=== PATIENT | female | born 1990 | race Caucasian/White ===

== ENCOUNTER 2016-04-05 10:34 | Emergency (ER) | payer OTHER ==
[~2016-04-05 10:34] MED LIST: ACET50TA PO; IBUP60TA PO
[2016-04-05 11:38] LABS: BASO % 0.5 % (0.0-1.0); EOS # 0.2 K/mm3 (0.0-0.50); EOS % 2.1 % (0.0-3.0); LARGE UNSTAINED CELL # 0.1 K/mm3 (0.0-0.4); LARGE UNSTAINED CELL % 2.1 % (0.0-4.0); LYMPH # 2.9 K/mm3 (1.5-6.5); LYMPH % 39.9 % (24.0-44.0); MEAN CORPUSCULAR HEMOGLOBIN 28.1 pg (27.0-33.0); MEAN CORPUSCULAR HGB CONC 31.9 g/dl (32.0-36.5); MONO # 0.4 K/mm3 (0.0-0.8); MONO % 5.7 % (0.0-5.0); NEUTROPHILS # 3.4 K/mm3 (1.8-7.7); NEUTROPHILS % 49.8 % (36.0-66.0); PLATELET COUNT, AUTOMATED 230 k/mm3 (150-450); RED CELL DISTRIBUTION WIDTH 12.1 % (11.5-14.5); WHITE BLOOD COUNT 6.9 K/mm3 (4.0-10.0)
--- NOTE | 2016-04-05 11:56 | REP ---
Chest x-ray: Two views. History: Chest pain . Comparison study: November 07, 2015 . Findings: The lungs are well inflated and free of infiltrate. The pleural angles are sharp. The heart size is normal. Pulmonary vasculature is not increased. No significant bony abnormality is seen. Impression: Negative chest x-ray. Signed by Hilario Hanna MD 04/05/2016 11:48 A
[2016-04-05 12:04] LABS: ALBUMIN 3.7 GM/DL (3.2-5.2); ALBUMIN/GLOBULIN RATIO 1.06 (1.00-1.93); ALKALINE PHOSPHATASE 65 U/L (45-117); ALT/SGPT 71 U/L (12-78); ANION GAP 8 MEQ/L (8-16); AST/SGOT 27 U/L (15-37); BILIRUBIN,DIRECT 0.1 MG/DL (0.0-0.2); BILIRUBIN,TOTAL 0.4 MG/DL (0.2-1.0); BLOOD UREA NITROGEN 8 MG/DL (7-18); CALCIUM LEVEL 8.3 MG/DL (8.5-10.1); CARBON DIOXIDE LEVEL 26 MEQ/L (21-32); CHLORIDE LEVEL 106 MEQ/L (98-107); CREATININE FOR GFR 0.77 MG/DL (0.55-1.02); GLOMERULAR FILTRATION RATE > 60.0 (>60); GLUCOSE, FASTING 80 MG/DL (70-105); POTASSIUM SERUM 3.7 MEQ/L (3.5-5.1); SODIUM LEVEL 140 MEQ/L (136-145); TOTAL PROTEIN 7.2 GM/DL (6.4-8.2)
--- NOTE | 2016-04-05 13:53 | EDDOCDS ---
Physician Documentation [facility] Name: Mariangel Mercado Age: 25 yrs Sex: Female : 1990 Arrival Date: 04/05/2016 Time: 10:34 Bed I3 / M3 Private MD: [place] [facility] [place]position: 04/05/16 13:12 Discharged to Home/Self Care. Impression: Anxiety disorder, unspecified, Chest pain, unspecified, Adverse effect of vitamins - WORKOUT/WEIGHT LOSS MEDICATIONS. - Condition is Stable. - Discharge Instructions: Nonspecific Chest Pain, Generalized Anxiety Disorder. - Medication Reconciliation, Local Pharmacy Hours form. - Follow up: Emergency Department; When: As needed; Reason: Worsening of conditions. Follow up: Private Physician; When: 2 - 3 days; Reason: Wound/Symptom Recheck, Recheck today's complaints, Continuance of care. - Problem is new. - Symptoms have improved. Historical: - Allergies: no known allergies; - Home Meds: 1. 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 No barriers to communication noted, The patient speaks fluent Egyptian, Speaks appropriately for age. - Family history: Not pertinent. - : The pt / caregiver states he / she is not on anticoagulants. Home medication list is obtained from the patient. - Exposure Risk Screening:: None identified. 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 6 in. (167.64 cm) (R); Pain 6/10; 13:36 BP 126 / 66 LA Sitting (auto/reg); Pulse 74; Resp 16; Temp 97.2(O); Pulse Ox 98% on jrd R/A; Pain 4/10; 10:36 Body Mass Index 34.70 (97.52 kg, 167.64 cm) lr2 MDM: 10:42 ECG WITH READING ER PHYS+CARDIAG ordered. EDMS 11:00 Financial registration complete. lg 11:09 IV Saline Lock ordered. dt4 11:09 Cardiac Injury Profile Ordered. EDMS 11:09 Troponin Ordered. EDMS 11:09 CBC with Diff Ordered. EDMS 11:09 Basic Metabolic Profile Ordered. EDMS 11:09 Liver Profile Ordered. EDMS 11:09 TSH w/o Free T4 Ordered. EDMS 11:11 Chest, 2 View (pa\\E\\lat) Ordered. EDMS 11:33 [facility] Payment Agreement was scanned into [employer] and attached to record. lg 12:08 NS 0.9% 1000 ml IV at bolus once ordered. dt4 13:07 Cardiac Injury Profile Reviewed. dt4 13:07 CBC with Diff Reviewed. dt4 13:07 Basic Metabolic Profile Reviewed. dt4 13:07 Troponin Reviewed. dt4 13:07 Liver Profile Reviewed. dt4 13:07 TSH w/o Free T4 Reviewed. dt4 13:07 Chest, 2 View (pa\\E\\lat) Reviewed. dt4 Administered Medications: 12:43 Drug: NS 0.9% 1000 ml [sodium chloride 0.9 % intravenous solution] Route: IV; Rate: jo3 bolus; Site: left antecubital; Signatures: Dispatcher [employer] EDBishop Smyth RN RN jmk Michelson, Staci, RN RN srm Ganter, LoriLee, Jame Reg Codi Garcia RN RN jo3 Tschudi, Diane, PA-C PA-C dt4 The chart was reviewed and I authenticate all verbal orders and agree with the evaluation and treatment provided.Attachments: 11:33 [facility] Payment Agreement lg MTDD
--- NOTE | 2016-04-05 13:53 | EDDOCDS ---
Nurse's Notes [facility] Name: Mariangel Mercado Age: 25 yrs Sex: Female : 1990 Arrival Date: 04/05/2016 Time: 10:34 Bed I3 / M3 Private MD: JOSE ELIAS Sanders Diagnosis: Anxiety disorder, unspecified;Chest pain, unspecified;Adverse effect of vitamins-WORKOUT/WEIGHT LOSS MEDICATIONS Presentation: 04/05 10:38 Presenting complaint: Patient states: wed started anew group of supplements and not srm reacting well with old supplements. had palpations and now having chest pain on left side, hands and arms are numb. dizziness. took supplements one day then stop them. Adult Sepsis Screening: The patient does not have new or worsening altered mentation. Patient's respiratory rate is less than 22. Systolic blood pressure is greater than 100. Patient has a qSOFA score of 0- Negative Sepsis Screen. Suicide/Homicide risk assessment- the patient denies having any suicidal and/or homicidal ideations and does not present with any other emotional, behavioral or mental health complaints. Status: The patient is a dependent. Transition of care: patient was not received from another setting of care. 10:38 Acuity: JUSTINO Level 3 srm 10:38 Method Of Arrival: Walkin/Carried/Asstd srm Triage Assessment: 10:40 General: Appears in no apparent distress, Behavior is appropriate for age, cooperative. srm Pain: Pain currently is 6 out of 10 on a pain scale. 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 No barriers to communication noted, The patient speaks fluent Puerto Rican, Speaks appropriately for age. - Family history: Not pertinent. - : The pt / caregiver states he / she is not on anticoagulants. Home medication list is obtained from the patient. - Exposure Risk Screening:: None identified. Screenin:30 Screening information is obtained from the patient. Fall risk: No risks identified. jo3 Assistance ADL's: requires no assistance with activities of daily living. Abuse/DV Screen: The patient / caregiver reports he/she is: not in a situation that causes fear, pain or injury. Nutritional screening: No deficits noted. Advance Directives: There is no active DNR order. home support is adequate. Assessment: 10:50 General: ekg shown to dr rosas and discussed pt's c/o. proceed through RCE process. srm 11:30 General: Appears in no apparent distress, comfortable, Behavior is appropriate for age, jo3 cooperative, pleasant. Neurological: Level of Consciousness is awake, alert, Oriented to person, place, time. Cardiovascular: Capillary refill is brisk Heart tones S1 S2 present Rhythm is regular Chest pain is located in left anterior. Respiratory: Airway is patent Respiratory effort is even, unlabored. Derm: Skin is pink, warm & dry. 12:30 Reassessment: Patient appears in no apparent distress at this time. No significant jo3 changes noted at this time. Awaiting disposition at this time. Aware of plan of care . 13:51 General: Appears without resp distress and is very tolerant of activity. Encouraged no jmk OTC preps for weight reduction, receptive.. Vital Signs: 10:36 BP 121 / 75; Pulse 72; Resp 17; Temp 97.4(T); Pulse Ox 99% on R/A; Weight 97.52 kg (R); lr2 Height 5 ft. 6 in. (167.64 cm) (R); Pain 6/10; 13:36 BP 126 / 66 LA Sitting (auto/reg); Pulse 74; Resp 16; Temp 97.2(O); Pulse Ox 98% on jrd R/A; Pain 4/10; 10:36 Body Mass Index 34.70 (97.52 kg, 167.64 cm) lr2 Vitals: 10:36 Log In Time: April 05, 2016 at 10:34. lr2 ED Course: 10:35 Patient visited by Mony Will. lr2 10:35 Patient moved to Waiting lr2 10:36 Tommy [facility] [place] is Private Physician. lr2 10:36 Patient moved to Pre RCE lr2 10:40 Triage Initiated srm 10:41 Patient moved to PR1 / 25 srm 10:48 Patient visited by Marleny Rodriguez, OLIVER. rs6 10:48 EKG done. (by ED staff). Reviewed by Carissa Rosas MD. rs6 10:50 Patient moved to Triage 2 srm 10:51 Patient visited by Zena Hanna RN. srm 10:54 [facility]. dt4 10:54 Carissa Rosas MD is Attending Physician. dt4 10:54 Patient visited by Shayy Mckeon PA-C. dt4 11:09 Patient moved to I3 / M3 rs6 11:30 The patient / caregiver is instructed regarding the plan of care and ED course. jo3 11:30 Inserted saline lock: 18 gauge in left antecubital area. Labs drawn. (by ED staff). jo3 Sent per order to lab. 11:33 [facility] [place] was scanned into [employer] and attached to record. lg 11:36 Patient visited by Codi Collins RN. jo3 12:34 Chest, 2 View (pa\\E\\lat) Returned. EDMS 12:48 Patient visited by Shayy Mckeon PA-C. dt4 13:07 Patient visited by Codi Collins RN. jo3 13:37 Patient visited by Ilia Mccurdy PCA. jrd 13:51 Discontinued lock intact, bleeding controlled, pressure dressing applied, No jmk redness/swelling at site. No procedures done that require assistance. Administered Medications: 12:43 Drug: NS 0.9% 1000 ml [sodium chloride 0.9 % intravenous solution] Route: IV; Rate: jo3 bolus; Site: left antecubital; Order Results: Lab Order: Cardiac Injury Profile; SPEC'M 04/05/16 11:27 Test: CPK CREATINE PHOSPHOKINASE; Value: 266; Range: 26-192; Abnormal: Above high normal; Units: U/L; Status: F Test: CK-MB VALUE MASS; Value: 1.6; Range: 0.0-3.6; Units: NG/ML; Status: F Test: MB/CK RELATIVE INDEX; Value: 0.60; Range: < OR =4; Status: F Test Note: ; DIAGNOSIS CRITERIA MMB ng/ml Relative Index (RI) NON-AMI < or = 5 N/A HO ZONE > 5 < or = 4 AMI > 5 > 4 Lab Order: Troponin; SPEC'M 04/05/16 11:27 Test: TROPONIN I; Value: < 0.02; Range: < 0.10; Units: NG/ML; Status: F Test Note: ; Troponin I Reference Interval for Siemens [place] LOCI: 99th Percentile= 0.00-0.045 ng/ml Risk Stratification: <= 0.10 ng/ml Decreased Risk for Adverse Clinical Events. 0.10-1.50 ng/ml Increased Risk for Adverse Clinical Events. Evaluation of additional criterion and/or repeat testing in 2-6 hours is suggested to rule out myocardial damage. >= 1.50 ng/ml Indicative of Myocardial Injury. Lab Order: CBC with Diff; [facility]04/05/16 11:27 Test: WHITE BLOOD COUNT; Value: 6.9; Range: 4.0-10.0; Units: K/mm3; Status: F Test: RED BLOOD COUNT; Value: 4.78; Range: 4.00-5.40; Units: M/mm3; Status: F Test: HEMOGLOBIN; Value: 13.4; Range: 12.0-16.0; Units: g/dl; Status: F Test: HEMATOCRIT; Value: 42.1; Range: 36.0-47.0; Units: %; Status: F Test: MEAN CORPUSCULAR VOLUME; Value: 88.0; Range: 80.0-96.0; Units: fl; Status: F Test: MEAN CORPUSCULAR HEMOGLOBIN; Value: 28.1; Range: 27.0-33.0; Units: pg; Status: F Test: MEAN CORPUSCULAR HGB CONC; Value: 31.9; Range: 32.0-36.5; Abnormal: Below low normal; Units: g/dl; Status: F Test: RED CELL DISTRIBUTION WIDTH; Value: 12.1; Range: 11.5-14.5; Units: %; Status: F Test: PLATELET COUNT, AUTOMATED; Value: 230; Range: 150-450; Units: k/mm3; Status: F Test: NEUTROPHILS %; Value: 49.8; Range: 36.0-66.0; Units: %; Status: F Test: LYMPH %; Value: 39.9; Range: 24.0-44.0; Units: %; Status: F Test: MONO %; Value: 5.7; Range: 0.0-5.0; Abnormal: Above high normal; Units: %; Status: F Test: EOS %; Value: 2.1; Range: 0.0-3.0; Units: %; Status: F Test: BASO %; Value: 0.5; Range: 0.0-1.0; Units: %; Status: F Test: LARGE UNSTAINED CELL %; Value: 2.1; Range: 0.0-4.0; Units: %; Status: F Test: NEUTROPHILS #; Value: 3.4; Range: 1.8-7.7; Units: K/mm3; Status: F Test: LYMPH #; Value: 2.9; Range: 1.5-6.5; Units: K/mm3; Status: F Test: MONO #; Value: 0.4; Range: 0.0-0.8; Units: K/mm3; Status: F Test: EOS #; Value: 0.2; Range: 0.0-0.50; Units: K/mm3; Status: F Test: BASO #; Value: 0.0; Range: 0.0-0.2; Units: K/mm3; Status: F Test: LARGE UNSTAINED CELL #; Value: 0.1; Range: 0.0-0.4; Units: K/mm3; Status: F Lab Order: Basic Metabolic Profile; [facility] 04/05/16 11:27 Test: GLUCOSE, FASTING; Value: 80; Range: 70-105; Units: MG/DL; Status: F Test: BLOOD UREA NITROGEN; Value: 8; Range: 7-18; Units: MG/DL; Status: F Test: CREATININE FOR GFR; Value: 0.77; Range: 0.55-1.02; Units: MG/DL; Status: F Test: GLOMERULAR FILTRATION RATE; Value: > 60.0; Range: >60; Status: F Test: SODIUM LEVEL; Value: 140; Range: 136-145; Units: MEQ/L; Status: F Test: POTASSIUM SERUM; Value: 3.7; Range: 3.5-5.1; Units: MEQ/L; Status: F Test: CHLORIDE LEVEL; Value: 106; Range: 98-107; Units: MEQ/L; Status: F Test: CARBON DIOXIDE LEVEL; Value: 26; Range: 21-32; Units: MEQ/L; Status: F Test: ANION GAP; Value: 8; Range: 8-16; Units: MEQ/L; Status: F Test: CALCIUM LEVEL; Value: 8.3; Range: 8.5-10.1; Abnormal: Below low normal; Units: MG/DL; Status: F Test Note: ; Units are mL/min/1.73 m2 Chronic Kidney Disease Staging per NKF: Stage I & II GFR >=60 Normal to Mildly Decreased Stage III GFR 30-59 Moderately Decreased Stage IV GFR 15-29 Severely Decreased Stage V GFR <15 Very Little GFR Left ESRD GFR <15 on DIRECTOR DATA MANAGEMENT Lab Order: Liver Profile; SPEC'M 04/05/16 11:27 Test: AST/SGOT; Value: 27; Range: 15-37; Units: U/L; Status: F Test: ALT/SGPT; Value: 71; Range: 12-78; Units: U/L; Status: F Test: ALKALINE PHOSPHATASE; Value: 65; Range: 45-117; Units: U/L; Status: F Test: BILIRUBIN,TOTAL; Value: 0.4; Range: 0.2-1.0; Units: MG/DL; Status: F Test: BILIRUBIN,DIRECT; Value: 0.1; Range: 0.0-0.2; Units: MG/DL; Status: F Test: TOTAL PROTEIN; Value: 7.2; Range: 6.4-8.2; Units: GM/DL; Status: F Test: ALBUMIN; Value: 3.7; Range: 3.2-5.2; Units: GM/DL; Status: F Test: ALBUMIN/GLOBULIN RATIO; Value: 1.06; Range: 1.00-1.93; Status: F Lab Order: TSH w/o Free T4; SPEC'M 04/05/16 11:27 Test: THYROID STIMULATING HORMONE; Value: 2.050; Range: 0.358-3.740; Units: uIU/ML; Status: F Radiology Order: Chest, 2 View (pa\\E\\lat) Test: Chest, 2 View (pa\\E\\lat) REASON FOR EXAMINATION: Chest Pain; Chest x-ray: Two views.; ; History: Chest pain .; ; Comparison study: November 07, 2015 .; ; Findings: The lungs are well inflated and free of infiltrate. The pleural; angles are sharp. The heart size is normal. Pulmonary vasculature is not; increased. No significant bony abnormality is seen.; ; Impression:; ; Negative chest x-ray.; ; ; Signed by; Hilario Hanna MD 04/05/2016 11:48 A; Outcome: 13:12 Discharge ordered by Provider. dt4 13:51 Discharge Assessment: Patient awake, alert and oriented x 3. No cognitive and/or jmk functional deficits noted. Patient verbalized understanding of disposition instructions. patient administered narcotics - no. The following High Risk Discharge criteria are identified: None. Discharged to home ambulatory. Condition: good. Discharge instructions given to patient, Instructed on discharge instructions, follow up and referral plans. medication usage, Demonstrated understanding of instructions, medications, Pt was receptive of discharge instructions/ teaching. No special radiology studies were completed. Property :Personal belongings accompany Pt. 13:53 Patient left the ED. evan Signatures: Dispatcher [employer] EDMS Bishop Rodriguez,RN RN Zena Ahn, RN RN Niels Denton, Jame Reg Codi Collins RN RN joShayy Boss, PA-C PA-C dt4 Ilia Mccurdy, WARDROBE ASSISTANT WARDROBE ASSISTANT Marleny Guerra, WARDROBE ASSISTANT WARDROBE ASSISTANT rs6 Mony Will lr2 LINDSAYD
--- NOTE | 2016-04-05 21:29 | ECGEPIP ---
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
--- NOTE | 2016-04-07 14:53 | EDDOCDS ---
Physician Documentation [facility] Name: Mariangel Mercado Age: 25 yrs Sex: Female : 1990 Arrival Date: 04/05/2016 Time: 10:34 Bed I3 / M3 Private MD: Tommy [facility] [place] Disposition: 04/05/16 13:12 Discharged to Home/Self Care. Impression: Anxiety disorder, unspecified, Chest pain, unspecified, Adverse effect of vitamins - WORKOUT/WEIGHT LOSS MEDICATIONS. - Condition is Stable. - Discharge Instructions: Nonspecific Chest Pain, Generalized Anxiety Disorder. - Medication Reconciliation, Local Pharmacy Hours form. - Follow up: Emergency Department; When: As needed; Reason: Worsening of conditions. Follow up: Private Physician; When: 2 - 3 days; Reason: Wound/Symptom Recheck, Recheck today's complaints, Continuance of care. - Problem is new. - Symptoms have improved. Historical: - Allergies: no known allergies; - Home Meds: 1. 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 No barriers to communication noted, The patient speaks fluent Namibian, Speaks appropriately for age. - Family history: Not pertinent. - : The pt / caregiver states he / she is not on anticoagulants. Home medication list is obtained from the patient. - Exposure Risk Screening:: None identified. 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 6 in. (167.64 cm) (R); Pain 6/10; 13:36 BP 126 / 66 LA Sitting (auto/reg); Pulse 74; Resp 16; Temp 97.2(O); Pulse Ox 98% on jrd R/A; Pain 4/10; 10:36 Body Mass Index 34.70 (97.52 kg, 167.64 cm) lr2 MDM: 10:42 ECG WITH READING ER PHYS+CARDIAG ordered. EDMS 11:00 Financial registration complete. lg 11:09 IV Saline Lock ordered. dt4 11:09 Cardiac Injury Profile Ordered. EDMS 11:09 Troponin Ordered. EDMS 11:09 CBC with Diff Ordered. EDMS 11:09 Basic Metabolic Profile Ordered. EDMS 11:09 Liver Profile Ordered. EDMS 11:09 TSH w/o Free T4 Ordered. EDMS 11:11 Chest, 2 View (pa\\E\\lat) Ordered. EDMS 11:33 [facility] [place] Agreement was scanned into [employer] and attached to record. lg 12:08 NS 0.9% 1000 ml IV at bolus once ordered. dt4 13:07 Cardiac Injury Profile Reviewed. dt4 13:07 CBC with Diff Reviewed. dt4 13:07 Basic Metabolic Profile Reviewed. dt4 13:07 Troponin Reviewed. dt4 13:07 Liver Profile Reviewed. dt4 13:07 TSH w/o Free T4 Reviewed. dt4 13:07 Chest, 2 View (pa\\E\\lat) Reviewed. dt4 14:58 T-Sheet-- Draft Copy was scanned into [employer] and attached to record. gb 04/06 17:02 ECG/EKG was scanned into [employer] and attached to record. gb Administered Medications: 02 12:43 Drug: NS 0.9% 1000 ml [sodium chloride 0.9 % intravenous solution] Route: IV; Rate: jo3 bolus; Site: left antecubital; Signatures: Dispatcher [employer] Bishop Mary RN RN jmk Michelson, Staci, RN RN [facility] Marilynn Hylton, Reg Reg Niels Briceno, Reg Reg Codi Collins RN RN jo3 Tschudi, Diane, PA-C PA-C dt4 The chart was reviewed and I authenticate all verbal orders and agree with the evaluation and treatment provided.Attachments: 11:33 [facility] Payment Agreement lg 14:58 T-Sheet-- Draft Copy gb 04/06 17:02 ECG/EKG gb Chart Complete MTDD
--- NOTE | 2016-04-07 14:53 | EDDOCDS ---
Physician Documentation [facility] Name: Mariangel Mercado Age: 25 yrs Sex: Female : 1990 Arrival Date: 04/05/2016 Time: 10:34 Bed I3 / M3 Private MD: Tommy [facility] [place] Disposition: 04/05/16 13:12 Discharged to Home/Self Care. Impression: Anxiety disorder, unspecified, Chest pain, unspecified, Adverse effect of vitamins - WORKOUT/WEIGHT LOSS MEDICATIONS. - Condition is Stable. - Discharge Instructions: Nonspecific Chest Pain, Generalized Anxiety Disorder. - Medication Reconciliation, Local Pharmacy Hours form. - Follow up: Emergency Department; When: As needed; Reason: Worsening of conditions. Follow up: Private Physician; When: 2 - 3 days; Reason: Wound/Symptom Recheck, Recheck today's complaints, Continuance of care. - Problem is new. - Symptoms have improved. Historical: - Allergies: no known allergies; - Home Meds: 1. 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 No barriers to communication noted, The patient speaks fluent Hungarian, Speaks appropriately for age. - Family history: Not pertinent. - : The pt / caregiver states he / she is not on anticoagulants. Home medication list is obtained from the patient. - Exposure Risk Screening:: None identified. 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 6 in. (167.64 cm) (R); Pain 6/10; 13:36 BP 126 / 66 LA Sitting (auto/reg); Pulse 74; Resp 16; Temp 97.2(O); Pulse Ox 98% on jrd R/A; Pain 4/10; 10:36 Body Mass Index 34.70 (97.52 kg, 167.64 cm) lr2 MDM: 10:42 ECG WITH READING ER PHYS+CARDIAG ordered. EDMS 11:00 Financial registration complete. lg 11:09 IV Saline Lock ordered. dt4 11:09 Cardiac Injury Profile Ordered. EDMS 11:09 Troponin Ordered. EDMS 11:09 CBC with Diff Ordered. EDMS 11:09 Basic Metabolic Profile Ordered. EDMS 11:09 Liver Profile Ordered. EDMS 11:09 TSH w/o Free T4 Ordered. EDMS 11:11 Chest, 2 View (pa\\E\\lat) Ordered. EDMS 11:33 [facility] [place] Payment Agreement was scanned into [employer] and attached to record. lg 12:08 NS 0.9% 1000 ml IV at bolus once ordered. dt4 13:07 Cardiac Injury Profile Reviewed. dt4 13:07 CBC with Diff Reviewed. dt4 13:07 Basic Metabolic Profile Reviewed. dt4 13:07 Troponin Reviewed. dt4 13:07 Liver Profile Reviewed. dt4 13:07 TSH w/o Free T4 Reviewed. dt4 13:07 Chest, 2 View (pa\\E\\lat) Reviewed. dt4 14:58 T-Sheet-- Draft Copy was scanned into [employer] and attached to record. gb 04/06 17:02 ECG/EKG was scanned into [employer] and attached to record. gb Administered Medications: 02 12:43 Drug: NS 0.9% 1000 ml [sodium chloride 0.9 % intravenous solution] Route: IV; Rate: jo3 bolus; Site: left antecubital; Signatures: Dispatcher [employer] Bishop Mary RN RN jmk Michelson, Staci, RN RN [place] [facility] Marilynn Hylton, Reg Reg Niels Briceno, Reg Reg Codi Collins RN RN jo3 Tschudi, Diane, PA-C PA-C dt4 The chart was reviewed and I authenticate all verbal orders and agree with the evaluation and treatment provided.Attachments: 11:33 [facility] Payment Agreement lg 14:58 T-Sheet-- Draft Copy gb 04/06 17:02 ECG/EKG gb Chart Complete MTDD
--- NOTE | 2016-04-07 14:54 | EDDOCDS ---
Nurse's Notes [facility] Name: Shubham Serna Age: 25 yrs Sex: Female : 1990 Arrival Date: 04/05/2016 Time: 10:34 Bed I3 / M3 Private MD: JOSE ELIAS Sanders Diagnosis: Anxiety disorder, unspecified;Chest pain, unspecified;Adverse effect of vitamins-WORKOUT/WEIGHT LOSS MEDICATIONS Presentation: 04/05 10:38 Presenting complaint: Patient states: wed started anew group of supplements and not srm reacting well with old supplements. had palpations and now having chest pain on left side, hands and arms are numb. dizziness. took supplements one day then stop them. Adult Sepsis Screening: The patient does not have new or worsening altered mentation. Patient's respiratory rate is less than 22. Systolic blood pressure is greater than 100. Patient has a qSOFA score of 0- Negative Sepsis Screen. Suicide/Homicide risk assessment- the patient denies having any suicidal and/or homicidal ideations and does not present with any other emotional, behavioral or mental health complaints. Status: The patient is a dependent. Transition of care: patient was not received from another setting of care. 10:38 Acuity: JUSTINO Level 3 srm 10:38 Method Of Arrival: Walkin/Carried/Asstd srm Triage Assessment: 10:40 General: Appears in no apparent distress, Behavior is appropriate for age, cooperative. srm Pain: Pain currently is 6 out of 10 on a pain scale. 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 No barriers to communication noted, The patient speaks fluent [place], Speaks appropriately for age. - Family history: Not pertinent. - : The pt / caregiver states he / she is not on anticoagulants. Home medication list is obtained from the patient. - Exposure Risk Screening:: None identified. Screenin:30 Screening information is obtained from the patient. Fall risk: No risks identified. jo3 Assistance ADL's: requires no assistance with activities of daily living. Abuse/DV Screen: The patient / caregiver reports he/she is: not in a situation that causes fear, pain or injury. Nutritional screening: No deficits noted. Advance Directives: There is no active DNR order. home support is adequate. Assessment: 10:50 General: ekg shown to dr rosas and discussed pt's c/o. proceed through RCE process. srm 11:30 General: Appears in no apparent distress, comfortable, Behavior is appropriate for age, jo3 cooperative, pleasant. Neurological: Level of Consciousness is awake, alert, Oriented to person, place, time. Cardiovascular: Capillary refill is brisk Heart tones S1 S2 present Rhythm is regular Chest pain is located in left anterior. Respiratory: Airway is patent Respiratory effort is even, unlabored. Derm: Skin is pink, warm & dry. 12:30 Reassessment: Patient appears in no apparent distress at this time. No significant jo3 changes noted at this time. Awaiting disposition at this time. Aware of plan of care . 13:51 General: Appears without resp distress and is very tolerant of activity. Encouraged no jmk OTC preps for weight reduction, receptive.. Vital Signs: 10:36 BP 121 / 75; Pulse 72; Resp 17; Temp 97.4(T); Pulse Ox 99% on R/A; Weight 97.52 kg (R); lr2 Height 5 ft. 6 in. (167.64 cm) (R); Pain 6/10; 13:36 BP 126 / 66 LA Sitting (auto/reg); Pulse 74; Resp 16; Temp 97.2(O); Pulse Ox 98% on jrd R/A; Pain 4/10; 10:36 Body Mass Index 34.70 (97.52 kg, 167.64 cm) lr2 Vitals: 10:36 Log In Time: April 05, 2016 at 10:34. lr2 ED Course: 10:35 Patient visited by Mony Will. lr2 10:35 Patient moved to Waiting lr2 10:36 Tommy [facility] is Private Physician. lr2 10:36 Patient moved to Pre RCE lr2 10:40 Triage Initiated srm 10:41 Patient moved to PR1 / 25 srm 10:48 Patient visited by Marleny Rodriguez, OLIVER. rs6 10:48 EKG done. (by ED staff). Reviewed by Carissa Rosas MD. rs6 10:50 Patient moved to Triage 2 srm 10:51 Patient visited by Zena Hanna RN. srm 10:54 [facility] dt4 10:54 Carissa Rosas MD is Attending Physician. dt4 10:54 Patient visited by Shayy Mckeon PA-C. dt4 11:09 Patient moved to I3 / M3 rs6 11:30 The patient / caregiver is instructed regarding the plan of care and ED course. jo3 11:30 Inserted saline lock: 18 gauge in left antecubital area. Labs drawn. (by ED staff). jo3 Sent per order to lab. 11:33 [facility] Payment Agreement was scanned into [employer] and attached to record. lg 11:36 Patient visited by Codi Collins RN. jo3 12:34 Chest, 2 View (pa\\E\\lat) Returned. EDMS 12:48 Patient visited by Shayy Mckeon PA-C. dt4 13:07 Patient visited by Codi Collins RN. jo3 13:37 Patient visited by Ilia Mccurdy PCA. jrd 13:51 Discontinued lock intact, bleeding controlled, pressure dressing applied, No jmk redness/swelling at site. No procedures done that require assistance. 14:58 T-Sheet-- Draft Copy was scanned into [employer] and attached to record. gb 22:16 EKG-ADULT Returned. EDMS 04/06 17:02 ECG/EKG was scanned into [employer] and attached to record. gb Administered Medications: 04/05 12:43 Drug: NS 0.9% 1000 ml [sodium chloride 0.9 % intravenous solution] Route: IV; Rate: jo3 bolus; Site: left antecubital; Order Results: Lab Order: Cardiac Injury Profile; SPEC'M 04/05/16 11:27 Test: CPK CREATINE PHOSPHOKINASE; Value: 266; Range: 26-192; Abnormal: Above high normal; Units: U/L; Status: F Test: CK-MB VALUE MASS; Value: 1.6; Range: 0.0-3.6; Units: NG/ML; Status: F Test: MB/CK RELATIVE INDEX; Value: 0.60; Range: < OR =4; Status: F Test Note: ; DIAGNOSIS CRITERIA MMB ng/ml Relative Index (RI) NON-AMI < or = 5 N/A HO ZONE > 5 < or = 4 AMI > 5 > 4 Lab Order: Troponin; SPEC'M 04/05/16 11:27 Test: TROPONIN I; Value: < 0.02; Range: < 0.10; Units: NG/ML; Status: F Test Note: ; Troponin I Reference Interval for [place] LOCI: 99th Percentile= 0.00-0.045 ng/ml Risk Stratification: <= 0.10 ng/ml Decreased Risk for Adverse Clinical Events. 0.10-1.50 ng/ml Increased Risk for Adverse Clinical Events. Evaluation of additional criterion and/or repeat testing in 2-6 hours is suggested to rule out myocardial damage. >= 1.50 ng/ml Indicative of Myocardial Injury. Lab Order: CBC with Diff; SPEC'M 04/05/16 11:27 Test: WHITE BLOOD COUNT; Value: 6.9; Range: 4.0-10.0; Units: K/mm3; Status: F Test: RED BLOOD COUNT; Value: 4.78; Range: 4.00-5.40; Units: M/mm3; Status: F Test: HEMOGLOBIN; Value: 13.4; Range: 12.0-16.0; Units: g/dl; Status: F Test: HEMATOCRIT; Value: 42.1; Range: 36.0-47.0; Units: %; Status: F Test: MEAN CORPUSCULAR VOLUME; Value: 88.0; Range: 80.0-96.0; Units: fl; Status: F Test: MEAN CORPUSCULAR HEMOGLOBIN; Value: 28.1; Range: 27.0-33.0; Units: pg; Status: F Test: MEAN CORPUSCULAR HGB CONC; Value: 31.9; Range: 32.0-36.5; Abnormal: Below low normal; Units: g/dl; Status: F Test: RED CELL DISTRIBUTION WIDTH; Value: 12.1; Range: 11.5-14.5; Units: %; Status: F Test: PLATELET COUNT, AUTOMATED; Value: 230; Range: 150-450; Units: k/mm3; Status: F Test: NEUTROPHILS %; Value: 49.8; Range: 36.0-66.0; Units: %; Status: F Test: LYMPH %; Value: 39.9; Range: 24.0-44.0; Units: %; Status: F Test: MONO %; Value: 5.7; Range: 0.0-5.0; Abnormal: Above high normal; Units: %; Status: F Test: EOS %; Value: 2.1; Range: 0.0-3.0; Units: %; Status: F Test: BASO %; Value: 0.5; Range: 0.0-1.0; Units: %; Status: F Test: LARGE UNSTAINED CELL %; Value: 2.1; Range: 0.0-4.0; Units: %; Status: F Test: NEUTROPHILS #; Value: 3.4; Range: 1.8-7.7; Units: K/mm3; Status: F Test: LYMPH #; Value: 2.9; Range: 1.5-6.5; Units: K/mm3; Status: F Test: MONO #; Value: 0.4; Range: 0.0-0.8; Units: K/mm3; Status: F Test: EOS #; Value: 0.2; Range: 0.0-0.50; Units: K/mm3; Status: F Test: BASO #; Value: 0.0; Range: 0.0-0.2; Units: K/mm3; Status: F Test: LARGE UNSTAINED CELL #; Value: 0.1; Range: 0.0-0.4; Units: K/mm3; Status: F Lab Order: Basic Metabolic Profile; SPEC'M 04/05/16 11:27 Test: GLUCOSE, FASTING; Value: 80; Range: 70-105; Units: MG/DL; Status: F Test: BLOOD UREA NITROGEN; Value: 8; Range: 7-18; Units: MG/DL; Status: F Test: CREATININE FOR GFR; Value: 0.77; Range: 0.55-1.02; Units: MG/DL; Status: F Test: GLOMERULAR FILTRATION RATE; Value: > 60.0; Range: >60; Status: F Test: SODIUM LEVEL; Value: 140; Range: 136-145; Units: MEQ/L; Status: F Test: POTASSIUM SERUM; Value: 3.7; Range: 3.5-5.1; Units: MEQ/L; Status: F Test: CHLORIDE LEVEL; Value: 106; Range: 98-107; Units: MEQ/L; Status: F Test: CARBON DIOXIDE LEVEL; Value: 26; Range: 21-32; Units: MEQ/L; Status: F Test: ANION GAP; Value: 8; Range: 8-16; Units: MEQ/L; Status: F Test: CALCIUM LEVEL; Value: 8.3; Range: 8.5-10.1; Abnormal: Below low normal; Units: MG/DL; Status: F Test Note: ; Units are mL/min/1.73 m2 Chronic Kidney Disease Staging per NKF: Stage I & II GFR >=60 Normal to Mildly Decreased Stage III GFR 30-59 Moderately Decreased Stage IV GFR 15-29 Severely Decreased Stage V GFR <15 Very Little GFR Left ESRD GFR <15 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 Lab Order: Liver Profile; SPEC'M 04/05/16 11:27 Test: AST/SGOT; Value: 27; Range: 15-37; Units: U/L; Status: F Test: ALT/SGPT; Value: 71; Range: 12-78; Units: U/L; Status: F Test: ALKALINE PHOSPHATASE; Value: 65; Range: 45-117; Units: U/L; Status: F Test: BILIRUBIN,TOTAL; Value: 0.4; Range: 0.2-1.0; Units: MG/DL; Status: F Test: BILIRUBIN,DIRECT; Value: 0.1; Range: 0.0-0.2; Units: MG/DL; Status: F Test: TOTAL PROTEIN; Value: 7.2; Range: 6.4-8.2; Units: GM/DL; Status: F Test: ALBUMIN; Value: 3.7; Range: 3.2-5.2; Units: GM/DL; Status: F Test: ALBUMIN/GLOBULIN RATIO; Value: 1.06; Range: 1.00-1.93; Status: F Lab Order: TSH w/o Free T4; SPEC'M 04/05/16 11:27 Test: THYROID STIMULATING HORMONE; Value: 2.050; Range: 0.358-3.740; Units: uIU/ML; Status: F Radiology Order: EKG-ADULT Test: EKG-ADULT REASON FOR EXAMINATION: Chest Pain; Stationary ECG Study; [facility] - ED; ; Test Date: 2016-04-05; Pat Name: SHUBHAM SERNA Department:; Room: -; 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; : 1990 Requested By: CARISSA Olvera; Order Number: [id number] Reading MD: Dhara Rhodes; Measurements; Intervals [place]; Rate: 69 P: 39; MT: 157 QRS: 48; QRSD: 94 T: 34; QT: 391; QTc: 420; Interpretive Statements; SINUS RHYTHM WITH SINUS ARRHYTHMIA; NO PRIOR FOR COMPARISON; Electronically Signed On 04-05-2016 21:28:36 EST by Dhara Rhodes; Radiology Order: Chest, 2 View (pa\\E\\lat) Test: Chest, 2 View (pa\\E\\lat) REASON FOR EXAMINATION: Chest Pain; Chest x-ray: Two views.; ; History: Chest pain .; ; Comparison study: November 07, 2015 .; ; Findings: The lungs are well inflated and free of infiltrate. The pleural; angles are sharp. The heart size is normal. Pulmonary vasculature is not; increased. No significant bony abnormality is seen.; ; Impression:; ; Negative chest x-ray.; ; ; Signed by; Hilario Hanna MD 04/05/2016 11:48 A; Outcome: 13:12 Discharge ordered by Provider. dt4 13:51 Discharge Assessment: Patient awake, alert and oriented x 3. No cognitive and/or jmk functional deficits noted. Patient verbalized understanding of disposition instructions. patient administered narcotics - no. The following High Risk Discharge criteria are identified: None. Discharged to home ambulatory. Condition: good. Discharge instructions given to patient, Instructed on discharge instructions, follow up and referral plans. medication usage, Demonstrated understanding of instructions, medications, Pt was receptive of discharge instructions/ teaching. No special radiology studies were completed. Property :Personal belongings accompany Pt. 13:53 Patient left the ED. david Signatures: Dispatcher [facility] Mary RN RN jmk Michelson, Staci, RN RN [facility] Marilynn Hylton, Reg Reg gb Ganter, Franke, Reg Reg lg Codi Collins,RN RN jo3 Linda, Shayy, PA-C PA-C dt4 Ilia Mccurdy, FLOW NURSE FLOW NURSE jrd Marleny Rodriguez, FLOW NURSE FLOW NURSE rs6 Mony Will lr2 Chart Complete MTDD
== END 2016-04-05 13:53 | disposition home or self-care (01) ==
LOC: M ED 10:34
DX: F41.9 Anxiety disorder, unspecified (principal); R07.9 Chest pain, unspecified; T88.7XXA Unspecified adverse effect of drug or medicament, initial encounter; F32.9 Major depressive disorder, single episode, unspecified; Z87.891 Personal history of nicotine dependence

== ENCOUNTER → 2018-07-28 | Outpatient (REF) | payer OTHER ==
[~2018-07-28] MED LIST changes: -ACET50TA PO; +IBUP600T42 PO; -IBUP60TA PO; +MAPA500T2 PO
[2018-07-28 22:57] LABS: CHLAMYDIA DNA AMPLIFICATION NEGATIVE (NEGATIVE); GC DNA AMPLIFICATION NEGATIVE (NEGATIVE)
== END ==
LOC: M SFHCLERA 17:59
PROVIDERS: ATTEND Physician Assistant
DX: R14.0 Abdominal distension (gaseous) (principal); R35.0 Frequency of micturition
CPT/HCPCS: 81002; 81025; 87086; 87661; G0463